=== PATIENT | female | born 1970 | race Caucasian/White ===

== ENCOUNTER → 2016-07-21 | Outpatient (CLI) | payer BC ==
[~2016-07-21] MED LIST: ADVAIR 2501 DISK W/D; ADVAIR 2501 DISK W/D PO; ALBUTEROL17 GM; ALEVE PO; ALEVE220 M1 PO; ALLEGRA-D1 TAB.SR1 PO; ALLEGRA-D1 TAB.SR2 PO; ALPRAZOLAM PO; AUGMENTIN PO; BACTRIM DS TABL1 TA1 PO; BACTRIM DS TABL1 TAB PO; BUSPAR PO; CELEBREX PO; CLARITIN D PO; CYMBALTA PO; CYMBALTA30 MG PO; DEPO-MEDROL20 MG/ML PO; DICLOFENAC PO; EXCEDRIN MIGRA1 EACH PO; GLUCOSAMINE CHONDROI PO; HCTZ PO; HYDROCHLOROTHIA25 MG PO; HYDROCODON-ACE1 EAC7 PO; LEVAQUIN PO; LIPITOR PO; LIPITOR40 MG PO; MAG-OXIDE400 MG PO; NASACORT AQ16.5 GM; NEXIUM PO; PROAIR HFA8.5 GM INH; PROZAC PO; SINGULAIR PO; SUDAFED 12 HOU120 M1 PO; SYMBICORT; VICODIN 5/500 T1 TAB PO; VIROPTIC7.5 ML OS; VOLTAREN50 MG PO; WELLBUTRIN XL PO; XOPENEX0.63 MG/3 IH; ZYVOX PO; [UNRECOGNIZED DRUG - OTHER] OS
--- NOTE | ~2016-07-21 | XA30 ---
[facility] A Service of [facility] & [facility] RADIOLOGY TEXT RESULTS PATIENT: LAUREL DAVIDSON [facility] : [birth year] UNIT #: [id number] AGE: [address]: Chung Hong MD SEX: F ORDER DR: [id number] [facility] [address] [place], [place] [address] [id number] O MR#: [id number] Acc #: [id number] NAME: LAUREL DAVIDSON. : 1970 SEX: F STUDY DATE/TIME: 07/21/2016 14:07 UNIT: [facility] ROOM: STUDY DESCRIPTION: XA Arthrocentesis Major Joint Attending Physician: Chung Hong M.D. Referring Physician: Chung Hong M.D. Ordering Physician: Chung Hong M.D. Primary Care Physician: Almaz Buitrago M.D. MEDICAL IMAGING REPORT This report is preliminary unless electronic signature is present EXAM Fluoroscopically guided left hip injection. INDICATION Left hip pain. Patient has a prior history of prior patellar fracture which has caused gait alterations and she has subsequently developed a chronic left hip pain. She has been referred for hip injection. PROCEDURE The risks, benefits, and alternatives to the procedure were explained to the patient, signed informed consent was obtained. She was placed supine on the angiographic table. She was prepped and draped in the usual sterile fashion. Time-out was performed as per protocol. Skin and kidneys tissues were anesthetized with buffered lidocaine. A 22-gauge spinal needle was advanced into the joint space. Contrast was injected, which confirmed location within the joint space and subsequently instilled a combination of lidocaine, bupivacaine and Depo-Medrol. The needle was then removed and manual pressure was applied until hemostasis was obtained. Patient tolerated procedure well. There are no immediate complications. Total fluoroscopy time was 0.5 minutes, AK was 32 mGy. IMPRESSION Technically successful fluoroscopically guided left hip injection as noted above. Fluoroscopy was used during the procedure and permanent images were saved. Dictated by... Sagrario F. Piña, M.D. THIS IS AN ELECTRONICALLY VERIFIED REPORT Sagrario Piña M.D. at 07/22/2016 4:39 PM AFF/gz [facility] A Service of [facility] & [facility] RADIOLOGY TEXT RESULTS PATIENT: LAUREL DAVIDSON LOCATION: [facility] #: [id number] : [birth year] UNIT #: [id number] AGE: [address]: Chung Hong MD SEX: F ORDER DR: TD: 07/22/2016 11:01 JOB #: [id number] MEDICAL IMAGING REPORT COPY
== END | disposition home or self-care (01) ==
LOC: CIVR 13:51
PROC: 3E0U3GC Introduction of Other Therapeutic Substance into Joints, Percutaneous Approach (ICD-10-PCS; principal; 2016-07-21)
DX: M25.552 Pain in left hip (principal)
CPT/HCPCS: 77002; J1030; Q9966

== ENCOUNTER → 2016-10-25 | Outpatient (CLI) | payer BC ==
--- NOTE | ~2016-10-25 | XA234 ---
[facility] A Service of [facility] & [facility] RADIOLOGY TEXT RESULTS PATIENT: LAUREL GARRISON LOCATION: [facility] : 72 UNIT #: [id number] AGE: [address]: Chung Hong MD SEX: F ORDER DR: [id number] [facility] [address] [place], [place] [address] [id number] O MR#: [id number] Acc #: [id number] NAME: LAUREL GARRISON : 1970 SEX: F STUDY DATE/TIME: 10/25/2016 8:54 [facility] RO[facility]: STUDY DESCRIPTION: XA Inj SI Joint Unilateral Attending Physician: Chung Hong M.D. Referring Physician: Chung Hong M.D. Ordering Physician: Chung Hong M.D. Primary Care Physician: Almaz Buitrago M.D. MEDICAL IMAGING REPORT This report is preliminary unless electronic signature is present REVISED REPORT EXAM Left SI joint under fluoroscopy. HISTORY Left SI joint and hip pain. PROCEDURE Attendant risks and options were discussed with Ms. Garrison. She understands and wishes to proceed. Informed written consent was obtained. The patient was placed in the prone position in the angio suite. From a posterior approach, utilizing maximal sterile barrier technique including Chlorhexidine scrub and sterile drapes and sterile gloves and masks, a 22-gauge spinal needle was placed into the left SI joint under local anesthesia. Approximately 3 mL of bupivacaine 0.5% and 80 mg of Depo-Medrol were injected into the joint. Prior to the procedure the patient reports a pain level of 2. Post procedure the patient is pain free. Total fluoroscopy time was 0.9 minutes. A single spot radiograph was obtained documenting needle placement. Total exposure estimated at 113 mGy air kerma skin exposure. SUMMARY Technically successful left SI joint joint injection under fluoroscopy. Dictated by... Vishal Thompson M.D. THIS IS AN ELECTRONICALLY VERIFIED REPORT Vishal Thompson M.D. at 11/03/2016 3:23 PM [place] [facility] A Service of [facility] & [facility] RADIOLOGY TEXT RESULTS PATIENT: [facility] GARRISON [id number] [birth year] UNIT #: [id number] AGE: [address]: Chung Hong MD SEX: F ORDER DR: TD: 10/25/2016 12:46 JOB #: [id number] CC: Shonda/aristides Please Delete MEDICAL IMAGING REPORT Page 1 of 1 COPY
== END | disposition home or self-care (01) ==
LOC: CIVR 08:40
PROC: 3E0U33Z Introduction of Anti-inflammatory into Joints, Percutaneous Approach (ICD-10-PCS; principal; 2016-10-25)
PROC: 3E0U3BZ Introduction of Anesthetic Agent into Joints, Percutaneous Approach (ICD-10-PCS; 2016-10-25)
DX: M53.3 Sacrococcygeal disorders, not elsewhere classified (principal)
CPT/HCPCS: 77002; J1030